=== PATIENT | female | born 1935 | race Caucasian/White ===

== ENCOUNTER 2016-05-14 19:28 | Inpatient (IN) | payer MEDICARE, OTHER ==
[2016-05-11 10:06] LABS: INTERNATIONAL NORMAL RATI 3.9 UNITS (-)
[2016-05-11 10:07] LABS: PROTIME (NOT ORD) 37.7 SEC (12.0-14.5)
[2016-05-13 11:01] LABS: INTERNATIONAL NORMAL RATI 3.1 UNITS (-)
[2016-05-13 11:02] LABS: PROTIME (NOT ORD) 31.7 SEC (12.0-14.5)
--- NOTE | ~2016-05-14 | DS ---
Discharge Summary [facility] [address] [place]. [address] NAME: JOZEF KING : 33 STATUS : DIS IN PAT#: [id number] AGE: 80 ADM/REG DATE : 05/14/16 MR#: [id number] REPORT SERV DATE: 05/22/16 DICTATED BY: GUSTAVO RICHARDS DATE: 05/22/16 REPORT STATUS : Draft TRANSCRIBED BY: MODL DATE: 05/22/16 ADMISSION DATE: 05/14/2016 DISCHARGE DATE: 05/22/2016 CHIEF COMPLAINT ON ADMISSION: Altered mental status and inability to swallow. DISCHARGING DIAGNOSES: 1. Acute encephalopathy. 2. Subacute stroke suspected. 3. Coagulopathy due to Coumadin. 4. Dysphagia due to thrush and aphthous ulcers. 5. Malnutrition. 6. History of recurrent urinary tract infections. 7. Hypertension. 8. Dementia. HISTORY OF PRESENT ILLNESS: Please see full H and P by Dr. Jb Starkey for details regarding initial presentation. HOSPITAL COURSE: 1. Encephalopathy. Suspected this was multifactorial initially, thought that the patient had urinary tract infection, however, the patient's urine came back normal. Unclear etiology other than the patient had multiple issues including severe malnutrition due to poor p.o. intake. Mental status has improved. The patient currently is alert and oriented. 2. Coagulopathy due to Coumadin with oral bleeding. The patient is on Coumadin for recent diagnosis of DVT. Lower extremity Dopplers were negative for DVT. We will continue to hold Coumadin at discharge. 3. Severe malnutrition. This is due to dementia as well as recent issues with swallowing due to thrush and aphthous ulcers. She is currently improving her p.o. intake and should continue to do so at rehab. Family is aware of her p.o. intake issues and is not interested in placing a PEG tube which I agree with. 4. Dysphagia due to thrush and aphthous ulcers. Currently the patient is getting MD Posadas mouthwash in addition to multiple other topical agents. We recommend continuing this at rehab and monitoring. The patient was seen by Speech Therapy who recommended a pureed diet with pureed needs and pudding thick liquids with aspiration precautions and oral care. 5. History of recurrent urinary tract infections. The patient will be resumed on her maintenance Macrobid. Her Ojeda catheter has been removed several days ago and she is urinating. 6. Hypertension. The patient has had very high blood pressure. She was started on low- dose Norvasc. 7. Given her age and comorbidities, we would not recommend tight control. 8. Dementia. The patient will be resumed on her outpatient regimen. Currently able to likely swallow medications safely. She was seen by Speech Therapy. 9. Subacute CVA. Again this may be related to her acute metabolic encephalopathy. We Discharge Summary [place] [address] [place]. [address] NAME: JOZEF KING : 33 STATUS : DIS IN PAT#: [id number] AGE: 80 ADM/REG DATE : 05/14/16 MR#: [id number] REPORT SERV DATE: 05/22/16 DICTATED BY: GUSTAVO RICHARDS DATE: 05/22/16 REPORT STATUS : Draft TRANSCRIBED BY: DELIO DATE: 05/22/16 would again believe it to be multifactorial. Given her symptoms, Neurology felt she likely had a subacute right MCA stroke. They have started on aspirin as well as a statin. Do not recommend further imaging to further clarify and recommend discontinuing estrogen. 10.History of pessary which was removed during the hospitalization. The patient's pessary had not been properly cared for upon admission, we have removed it here and was very full of discharge with green material. Her cultures have not grown anything, we have not replaced this. The patient can follow up with outpatient providers to determine if replacement of pessary is appropriate. DISCHARGE MEDICATIONS: Norvasc 2.5 mg daily; Liquid Tears twice daily; aspirin 325 mg daily; Atorvastatin 40 mg daily; MD Posadas mouthwash 10 mL q.6 hours for the next 7 days, multiple topical treatments; Tylenol p.r.n.; Aricept 10 mg at bedtime; Boniva 150 mg every 30 days; Remeron 15 mg daily; Namenda 5 p.o. b.i.d.; Myrbetriq 25 mg daily; nitrofurantoin 50 mg at bedtime; Prilosec 20 mg daily; Os-Sal; K-Dur 20 mEq daily; Xanax 0.25 every 8 hours p.r.n.; vitamin D; Dulcolax and milk of magnesia p.r.n. Time spent on this discharge is greater than 30 minutes. PERTINENT LABORATORY DATA: At the time of discharge, last hemoglobin 11.3, white blood cell count 9.2, and platelet count of 602. BMP grossly unremarkable with a creatinine of 0.61. DNK/MODL Gustavo Richards MD / [id number] CC: MD Jarret Brewer M.D.
--- NOTE | ~2016-05-14 | EEG ---
Electroencephalogram [id number] [place]. [address] NAME: JOZEF KING : 33 STATUS : DIS IN PAT#: [id number] AGE: 80 ADM/REG DATE : 05/14/16 MR#: [id number] REPORT SERV DATE: 05/26/16 DICTATED BY: JOE MAST DATE: 05/26/16 REPORT STATUS : Draft TRANSCRIBED BY: MODL DATE: 05/26/16 ELECTROENCEPHALOGRAPHY REPORT REQUESTING PHYSICIAN: Dr. Yasmani Craig. INTERPRETING PHYSICIAN: Dr. Joe Mast MD. AGE: 80. REASON FOR EEG: Encephalopathy, altered mental status, rule out seizures. DATE OF EE05/20/2016. 23 surface electrodes, 10-20 international placement was used. The background activity consisted of poorly organized [id number] voltage 6 to 7 cycles per second scattered throughout. Slower frequencies in the low range theta and delta with triphasic configurations were noted intermittently. No significant asymmetry of cerebral activity was present. No paroxysmal epileptiform features were noted during this study. The patient's certified novell administrator showed relatively regular sinus rhythm with substantial amount of artifact seen. No arrhythmias were observed. IMPRESSION: THIS EEG IS COMPATIBLE WITH METABOLIC ENCEPHALOPATHY. DIFFUSE SLOWING OF CEREBRAL ACTIVITY SUGGESTING DIFFUSE CEREBRAL DYSFUNCTION. CLINICAL CORRELATION IS RECOMMENDED. IVETTE/DELIO Joe Mast MD / [id number] CC: MD Jarret Brewer M.D.
--- NOTE | ~2016-05-14 | CN ---
Consultation Report [facility] [address] [place]. [address] NAME: JOZEF KING : 33 STATUS : ADM IN [facility]#: [id number] AGE: 80 ADM/REG DATE : 05/14/16 MR#: [id number] REPORT SERV DATE: 05/19/16 DICTATED BY: KATHLEEN FAIRCHILD DATE: 05/19/16 REPORT STATUS : Draft TRANSCRIBED BY: MODZach DATE: 05/19/16 NEUROLOGY CONSULTATION DATE OF CONSULTATION: 05/19/2016 REASON FOR CONSULTATION: Acute encephalopathy. HOSPITALIST: Gray Barnes M.D. HISTORY OF PRESENT ILLNESS: The patient is an 80-year-old female, who is a resident of [facility]. She recently has had difficulty with persistent urinary tract infections. According to her daughter, she started to have frequent UTIs in March. She has been on several different antibiotics, but has been on several antibiotics which have not seemed to help. In addition to that the patient has had aphthous ulcers in her mouth and has had difficulty swallowing. Because of these problems, the patient was brought into the hospital for further evaluation and treatment. The patient also has a history of dementia, she is on Aricept and Namenda. The patient's daughter feels that she has gradually had diminished level of consciousness and has deviated from her baseline. This has occurred over the last three weeks. Consequently, the daughter was concerned that maybe she had a stroke or seizure type event. The patient is a DNR. PAST MEDICAL HISTORY: Dementia, frequent UTIs, DVT, anxiety, depression, dry eyes, vitamin D deficiency, osteoporosis, stress incontinence, GERD, insomnia, constipation, and aphthous ulcers. PAST SURGICAL HISTORY: Cholecystectomy, total abdominal hysterectomy, and oral surgery. HOME MEDICATIONS: Tylenol p.r.n., Xanax 0.25 mg q.6 hours p.r.n., Artificial Tears p.r.n., aspirin 81 mg daily, Dulcolax 10 mg suppository p.r.n. constipation, Os-Sal with D 500 mg p.o. b.i.d., Aricept 10 mg at bedtime, vitamin D3 50,000 units every month, Estrace vaginal cream 1 g vaginally three times a week, Boniva 150 mg every month, Namenda 5 mg b.i.d., milk of magnesia 30 mL p.o. p.r.n. constipation, Myrbetriq 25 mg ER every day, Remeron 15 mg at bedtime, Macrodantin 50 mg at bedtime, Prilosec 20 mg daily, K-Dur 20 mEq daily, Isabella-Colace one tablet twice a day, Bactrim DS one tablet b.i.d. x14 days which was started on 05/06/2016 of this month, Kenalog cream topically four times a day applied to the lips, Lidex 0.5% ointment four times a day, intraoral tissue, Coumadin 2 mg daily (currently on hold). ALLERGIES: NONE. SOCIAL HISTORY: The patient lives at [facility]. She is a . She has four girls. She is retired. 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 She does not smoke, drink alcohol, or use illicits. Consultation Report [address] [address] NAME: JOZEF KING : 33 STATUS : ADM IN [facility]#: [id number] AGE: 80 ADM/REG DATE : 05/14/16 MR#: [id number] REPORT SERV DATE: 05/19/16 DICTATED BY: KATHLEEN FAIRCHILD DATE: 05/19/16 REPORT STATUS : Draft TRANSCRIBED BY: DELIO DATE: 05/19/16 FAMILY HISTORY: The patient's mother in her 60s from a stroke. The patient had an absentee father and consequently has no medical history. She has one older sister, who is in poor health. REVIEW OF SYSTEMS: Unable to obtain from the patient. She is encephalopathic. PHYSICAL EXAMINATION: VITAL SIGNS: The patient is an 80-year-old female, who stands 5 feet 3 inches tall, and weighs 134 pounds. She is afebrile. Heart rate 76, respiratory rate 18, O2 saturations on room air 96%, blood pressure is 195/90. NEURO: The patient is awake. She is alert at times, sometimes she will be somewhat drowsy, but is easily awoken with verbal or painful stimuli. Pupils are 3 mm, PERRLA. The patient has partial gaze palsy. Visually she is oriented to her right side, but not her left (visual extinction). There is no facial droop. Tongue is somewhat midline. She does have aphthous ulcers on her soft palate and hard palate. No reported sensory deficits on the face. She can move all extremities x4. She is unable to raise her left arm. Hand is somewhat closed, she is unable to completely open her hand, and has limited range of motion (left hand). She has good range of motion with the right hand. Strength on the right is 4/5, on the left 2/5. The patient reports diminished sensation on the left when compared to the right. Upper DTRs on the left are 3+, on the right are 2+. Lower extremities, strength on the right is a 3+, and on the left is 1+. Unable to obtain an accurate patient report on sensation in the lower extremities. The patient's left foot is slightly inverted. Upgoing toes. Patellar DTRs are 2+ bilaterally. CHEST: Rhonchi bilaterally. CARDIAC: Regular rate and rhythm. Distant heart sounds. LABORATORY DATA: CBC is relatively normal. Platelets are 490. BMP normal except potassium is 3.4, INR today is 3.1, B12 767, TSH 2.0. Urinalysis is negative for UTI, however, culture did show yeast. CT of the brain, no new infarction, however, it shows a subacute infarction in the right MCA territory. NIH stroke scale is a 15. ASSESSMENT/PLAN: 1. Subacute middle cerebral artery territory stroke. At present the patient is n.p.o., but she will be started on aspirin 300 mg rectally, and will be started on a statin when she is taking p.o. The patient is unable to tolerate MRI. She did have a CT. No further imaging will be done. The patient is a DNR. 2. Acute encephalopathy, most likely multifactorial. The patient recently had a urinary tract infection. She also has had a subacute stroke. 3. Recent urinary tract infection. 4. Dementia. 5. Aphthous ulcers. 6. Dysphagia, most likely caused from ulcerations and possibly secondary to stroke. Speech Therapy will be reconsulted. 7. DNR. Consultation Report [place] [address] [address] NAME: JOZEF KING : 33 STATUS : ADM IN [facility]#: [id number] AGE: 80 ADM/REG DATE : 05/14/16 MR#: [id number] REPORT SERV DATE: 05/19/16 DICTATED BY: KATHLEEN FAIRCHILD DATE: 05/19/16 REPORT STATUS : Draft TRANSCRIBED BY: DELIO DATE: 05/19/16 Thank you again for including us in consultation. We will continue to follow with you. JULIET/DELIO Kathleen Fairchild ACNP-BC / [id number] CC: MD Jarret Brewer M.D. Adrien K. Strickland, M.D.
--- NOTE | ~2016-05-14 | HP ---
History And Physical [id number] [place]. [address] NAME: JOZEF GOMEZ : 33 STATUS : ADM IN [facility]#: [id number] AGE: 80 ADM/REG DATE : 05/14/16 MR#: [id number] REPORT SERV DATE: 05/14/16 DICTATED BY: JB BLACK DATE: 05/14/16 REPORT STATUS : Draft TRANSCRIBED BY: MODL DATE: 05/14/16 DATE OF ADMISSION: 05/14/2016 CHIEF COMPLAINT: Altered mental status and inability to swallow even liquids. HISTORY OF PRESENT ILLNESS: This is an 80-year-old female, a resident at [facility] with a history of recent ongoing urinary tract infections and oral aphthous ulcers, was brought to the emergency room at [facility] because she was unable to swallow even liquids today. History is obtained from the patient's daughter, who is at bedside, reviewing data available from the facility which accompanied the patient and reviewing data available on the [facility] system here. According to available data, Mrs. Gomez started having a urinary tract infection about three weeks ago, around or so march. She was treated with a round of antibiotics and then found to have another urinary tract infection. Looking at Gram stains here, the first one was nitrite negative and subsequently, they had become nitrite positive. She had been treated with oral Bactrim in the facility as well. She has a history of DVT three weeks ago and has since been on warfarin as well. Apparently, the prothrombin time was up, INR was 3.1 yesterday and Coumadin was on hold. She was sent to the emergency room because she was unable to swallow anything and had a problem with nutrition also. In the emergency room, initial evaluation revealed severe oral aphthous ulcers and possibly thrush contributing to her dysphagia. She also had a urinary tract infection as well and Hospitalist Service is asked to admit her for further evaluation and treatment. At the time of my evaluation, Mrs. Gomez had some altered mental status going, although she was able to answer some questions, but she would not respond to many others. According to the daughter, she had not complained of any chest pain or palpitations. She did not have orthopnea today. She has not had any recent cough, fever, chills, hemoptysis, night sweats, or weight loss. She has not had any nausea, vomiting, or diarrhea. No history of recent hematemesis, hematochezia, or hematuria. No other history of recent travel or exposures other than those mentioned above. PAST MEDICAL HISTORY: Significant for history of recent deep venous thrombosis in her lower extremities, started on warfarin therapy. She also has history of ongoing urinary tract infection. SOCIAL HISTORY: She does not smoke, drink, or use recreational drugs. FAMILY HISTORY: Noncontributory. MEDICATIONS AT HOME: Reviewed by me in the chart today and reordered by me. REVIEW OF SYSTEMS: As in history of present illness. All other systems were reviewed in detail and are quite unremarkable. History And Physical [address] [address] NAME: JOZEF GOMEZ : 33 STATUS : ADM IN [facility]#: [id number] AGE: 80 ADM/REG DATE : 05/14/16 MR#: [id number] REPORT SERV DATE: 05/14/16 DICTATED BY: JB BLACK DATE: 05/14/16 REPORT STATUS : Draft TRANSCRIBED BY: DELIO DATE: 05/14/16 PHYSICAL EXAMINATION: GENERAL: This is a pleasant 80-year-old, who has altered mental status and is a very poor historian. HEENT: Her head appears to be atraumatic, normocephalic. Her pupils are equal, reacting to light and accommodating. External ocular muscles are intact. Membranes are moist and pink. Sclerae are nonicteric. Her oropharynx and oral cavity was examined with flash light by me. There are several aphthous ulcers, especially in the back of her hard palate and soft palate that seems to be thrush as well. NECK: Supple with no jugular venous distention, lymphadenopathy, or thyromegaly. LUNGS: Clear to auscultation with no wheezes, rubs, or crackles. HEART: Sounds were regular with no murmurs, rubs, or gallops. ABDOMEN: Soft, nontender. Bowel sounds are present. EXTREMITIES: Showed no cyanosis, clubbing, or edema. NEUROLOGIC: Grossly intact. No focal sensory or motor deficits. Higher functions appeared intact. VITAL SIGNS: Today showed temperature of 98 degrees Fahrenheit, pulse 91, respirations 18 a minute, blood pressure was 147/65, oxygen saturations were 99%, breathing 2 L of oxygen via nasal cannula. LABORATORY DATA: Reviewed on the [facility] system showed a normal CMP with a blood glucose of 119. Her lipase was 96 today. Alkaline phosphatase was 361. ALT and AST were also elevated. This was 104 in March 2013. Her troponin was 0.02 and CBC showed a white blood cell count of 11,600. Normal hemoglobin, hematocrit, and platelet count. Urinalysis today showed trace ketone, trace leukocyte esterase, nitrite was negative today and there were 5 wbc's. Films of the CT scan of her brain did not reveal any acute pathology at this time. Official radiology report was reviewed. A 12-lead EKG done in the emergency room was reviewed and interpreted by me. There is normal sinus rhythm at a rate of [address] elevations. IMPRESSION: 1. Altered mental status. 2. Dysphagia to even liquids. 3. Oral aphthous ulcers. 4. Urinary tract infection. 5. History of deep vein thrombosis, on warfarin therapy. 6. History of cerebrovascular accident. 7. The patient is DNR. PLAN: We will admit Mrs. Gomez to the Hospitalist Service with defensive monitoring. We will start her on nystatin swish and swallow for her thrush and also Orajel cream for her aphthous ulcers. We will get speech therapy to evaluate her as well. After cultures are drawn, we will start her on ceftriaxone intravenously for UTI. Follow Gram stains and culture results and if not needed, we will stop it. We will get a stat prothrombin time with INR and then, go ahead and dose warfarin. Meanwhile, we will give her some IV fluids for maintenance and nutrition. Follow chemistry and electrolytes in the morning. We will also get speech therapy to evaluate her, but I think her oral ulcers and thrush could be History And Physical [address] [address] NAME: JOZEF GOMEZ : 31 STATUS : ADM IN [facility]#: [id number] AGE: 80 ADM/REG DATE : 05/14/16 MR#: [id number] REPORT SERV DATE: 05/14/16 DICTATED BY: JB BLACK DATE: 05/14/16 REPORT STATUS : Draft TRANSCRIBED BY: MODL DATE: 05/14/16 contributing to the problem as well. I have discussed the above plans with the patient and her daughter. Questions were answered and they are agreeable to the above recommendations. Hospitalist Service will be following her during her stay here. /DELIO Jb Black M.D. / [id number] CC: Ariela Newsome M.D.
[2016-05-14 18:30] LABS: ASCORBIC ACID (UR NOT ORDER) NEG (NEG); BILIRUBIN, URINE NEGATIVE (NEG); ER URINALYSIS TAT 0 Hrs 16 Mins; KETONE, URINE TRACE MG/DL (NEG); LEUKOCYTE ESTERASE(NOT OR TRACE (NEG); NITRITE (URINE) NEG (NEG); WBC (NOT ORDERED) (RFLEX) 5 (0-5)
[2016-05-14 18:31] LABS: BASOPHILS 0.5 %; BASOPHILS ABSOLUTE 0.06 10/3/uL (0.0-0.16); EOSINOPHILS 2.4 %; EOSINOPHILS ABSOLUTE 0.28 10/3/uL (0.0-0.53); ER CBC TAT 0 Hrs 08 Mins; HEMOGLOBIN 12.6 g/dL (12.0-16.0); IMMATURE GRANULOCYTES 3.7 %; IMMATURE GRANULOCYTES ABSOLUTE 0.43 10/3/uL (0.0-0.11); LYMPHOCYTES 8.4 %; LYMPHOCYTES ABSOLUTE 0.98 10/3/uL (0.67-4.30); MEAN CORPUS HGB CONC 32.5 g/dL (32.0-36.0); MEAN CORPUSCULAR HEMOGLOB 30.7 pg (26.0-34.0); MEAN CORPUSCULAR VOLUME 94.6 fL (80-100); MEAN PLATELET VOLUME 9.1 fL (9.2-13.0); MONOCYTES 8.9 %; MONOCYTES ABSOLUTE 1.04 10/3/uL (0.21-1.20); NEUTROPHILS 76.1 %; NEUTROPHILS ABSOLUTE 8.84 10/3/uL (2.02-8.40); PLATELET COUNT 402 10/3/uL (150-400); WHITE BLOOD CELLS 11.6 10/3/uL (4.5-10.5)
[2016-05-14 18:40] LABS: HEMATOCRIT 38.8 % (36.0-48.0); MANUAL DIFF NO %
[2016-05-14 18:47] LABS: A/G RATIO 0.5 (0.7-1.9); ALBUMIN 2.2 G/DL (3.5-5.0); ALKALINE PHOSPHATASE 361 U/L (45-117); BUN (BLOOD UREA NITROGEN) 19 MG/DL (6-23); CALCIUM, SERUM 8.1 MG/DL (8.5-10.4); CHLORIDE, SERUM 110 MMOL/L (96-112); CO2 (CARBON DIOXIDE) 25 MMOL/L (24-34); CREATININE 0.75 MG/DL (0.55-1.02); GFR AFRICAN AMERICAN 86 ML/MIN (>=60); GFR NON AFRICAN AMERICAN 74 ML/MIN (>=60); GLOBULIN 4.3 G/DL (2.5-4.1); GLUCOSE, SERUM 119 MG/DL (60-99); POTASSIUM, SERUM 4.2 MMOL/L (3.5-5.3); SGOT(AST) 179 U/L (5-40); SGPT(ALT) 324 U/L (5-65); SODIUM, SERUM 144 MMOL/L (135-148); TOTAL BILIRUBIN 0.5 MG/DL (0-1.2); TOTAL PROTEIN 6.5 G/DL (6.0-8.5)
[2016-05-14] MEDS ORDERED: TEARS PURE OPH ×2 (21:08→21:28)
[2016-05-14] MEDS ORDERED: HALF81 PO (21:08)
[2016-05-14] MEDS ORDERED: ARICEPT10 PO (21:09)
[2016-05-14] MEDS ORDERED: BONIVA150 MG PO (21:10)
[2016-05-14] MEDS ORDERED: ESTRACE VAGIN42.5 GM V (21:10)
[2016-05-14] MEDS ORDERED: KENALOG 0.1% TOP (21:12)
[2016-05-14] MEDS ORDERED: FLUOCINONIDE 0.05% PO (21:21)
[2016-05-14] MEDS ORDERED: MYRBETRIQ25 MG PO (21:22)
[2016-05-14] MEDS ORDERED: REM15 PO (21:22)
[2016-05-14] MEDS ORDERED: NAMENDA5 PO (21:22)
[2016-05-14] MEDS ORDERED: PRILOSEC OTC20 MG PO (21:23)
[2016-05-14] MEDS ORDERED: MACRO50B PO (21:23)
[2016-05-14] MEDS ORDERED: KDUR20 PO (21:24)
[2016-05-14] MEDS ORDERED: OS500+D PO (21:24)
[2016-05-14] MEDS ORDERED: BACDS PO (21:25)
[2016-05-14] MEDS ORDERED: PERI-COLACE1 TAB PO (21:25)
[2016-05-14] MEDS ORDERED: VITD PO (21:26)
[2016-05-14] MEDS ORDERED: T PO (21:27)
[2016-05-14] MEDS ORDERED: BISR PR (21:28)
[2016-05-14] MEDS ORDERED: X25 PO (21:28)
[2016-05-14] MEDS ORDERED: MOMUD PO (21:29)
[2016-05-14] MEDS ORDERED: C2 PO (21:31)
[2016-05-14 23:11] LABS: INTERNATIONAL NORMAL RATI 3.3 UNITS (-); PROTIME (NOT ORD) 33.1 SEC (12.0-14.5)
[2016-05-14 23:19] LABS: BUN (BLOOD UREA NITROGEN) 18 MG/DL (6-23); CALCIUM, SERUM 8.3 MG/DL (8.5-10.4); CHLORIDE, SERUM 110 MMOL/L (96-112); CO2 (CARBON DIOXIDE) 23 MMOL/L (24-34); CREATININE 0.67 MG/DL (0.55-1.02); GFR AFRICAN AMERICAN 95 ML/MIN (>=60); GFR NON AFRICAN AMERICAN 82 ML/MIN (>=60); GLUCOSE, SERUM 115 MG/DL (60-99); PHOSPHORUS, SERUM 2.4 MG/DL (2.5-4.5); POTASSIUM, SERUM 3.9 MMOL/L (3.5-5.3); SODIUM, SERUM 143 MMOL/L (135-148)
[2016-05-15 14:21] LABS: HEMOGLOBIN 11.3 g/dL (12.0-16.0); MEAN CORPUS HGB CONC 32.8 g/dL (32.0-36.0); MEAN CORPUSCULAR HEMOGLOB 30.6 pg (26.0-34.0); MEAN CORPUSCULAR VOLUME 93.2 fL (80-100); MEAN PLATELET VOLUME 8.7 fL (9.2-13.0); PLATELET COUNT 397 10/3/uL (150-400); RBC DISTRIBUTION WIDTH 14.1 % (12.0-16.0); RED CELL COUNT 3.69 10/6/uL (4.0-5.6); WHITE BLOOD CELLS 10.4 10/3/uL (4.5-10.5)
[2016-05-15 14:23] LABS: HEMATOCRIT 34.4 % (36.0-48.0); MANUAL DIFF YES %
[2016-05-15 14:29] LABS: PARTIAL THROMBO TIME 54.4 SEC (22.5-37.2)
[2016-05-15 14:33] LABS: PROTIME (NOT ORD) 38.7 SEC (12.0-14.5)
[2016-05-15 14:41] LABS: A/G RATIO 0.5 (0.7-1.9); BUN (BLOOD UREA NITROGEN) 12 MG/DL (6-23); CHLORIDE, SERUM 108 MMOL/L (96-112); CO2 (CARBON DIOXIDE) 25 MMOL/L (24-34); CREATININE 0.64 MG/DL (0.55-1.02); DIRECT BILIRUBIN 0.2 MG/DL (0.0-0.4); GFR AFRICAN AMERICAN 96 ML/MIN (>=60); GFR NON AFRICAN AMERICAN 83 ML/MIN (>=60); GLOBULIN 4.1 G/DL (2.5-4.1); GLUCOSE, SERUM 107 MG/DL (60-99); INDIRECT BILIRUBIN(NOT ORDER) 0.5 MG/DL (0.1-0.9); POTASSIUM, SERUM 3.7 MMOL/L (3.5-5.3); SGOT(AST) 134 U/L (5-40); SGPT(ALT) 242 U/L (5-65); SODIUM, SERUM 141 MMOL/L (135-148); TOTAL BILIRUBIN 0.7 MG/DL (0-1.2); TOTAL PROTEIN 6.1 G/DL (6.0-8.5)
[2016-05-15 14:42] LABS: ALKALINE PHOSPHATASE 340 U/L (45-117)
[2016-05-15 15:29] LABS: VACUOLATED NEUTROPHILES OCC
[2016-05-15 15:30] LABS: ATYPICAL LYMPH OCC (0-2%) (0-5%)
[2016-05-16 06:16] LABS: PARTIAL THROMBO TIME 72.3 SEC (22.5-37.2)
[2016-05-16 06:18] LABS: BASOPHILS 0.5 %; BASOPHILS ABSOLUTE 0.05 10/3/uL (0.0-0.16); EOSINOPHILS 3.8 %; EOSINOPHILS ABSOLUTE 0.38 10/3/uL (0.0-0.53); HEMATOCRIT 34.4 % (36.0-48.0); HEMOGLOBIN 11.1 g/dL (12.0-16.0); IMMATURE GRANULOCYTES 3.9 %; IMMATURE GRANULOCYTES ABSOLUTE 0.39 10/3/uL (0.0-0.11); LYMPHOCYTES 15.3 %; LYMPHOCYTES ABSOLUTE 1.54 10/3/uL (0.67-4.30); MEAN CORPUS HGB CONC 32.3 g/dL (32.0-36.0); MEAN CORPUSCULAR HEMOGLOB 30.5 pg (26.0-34.0); MEAN CORPUSCULAR VOLUME 94.5 fL (80-100); MEAN PLATELET VOLUME 8.7 fL (9.2-13.0); MONOCYTES ABSOLUTE 1.11 10/3/uL (0.21-1.20); NEUTROPHILS 65.5 %; NEUTROPHILS ABSOLUTE 6.61 10/3/uL (2.02-8.40); PLATELET COUNT 409 10/3/uL (150-400); RED CELL COUNT 3.64 10/6/uL (4.0-5.6); WHITE BLOOD CELLS 10.1 10/3/uL (4.5-10.5)
[2016-05-16 06:20] LABS: MANUAL DIFF NO %
[2016-05-16 06:26] LABS: PROTIME (NOT ORD) 45.8 SEC (12.0-14.5)
[2016-05-16 06:31] LABS: A/G RATIO 0.5 (0.7-1.9); ALBUMIN 1.9 G/DL (3.5-5.0); BUN (BLOOD UREA NITROGEN) 9 MG/DL (6-23); CALCIUM, SERUM 8.1 MG/DL (8.5-10.4); CHLORIDE, SERUM 107 MMOL/L (96-112); CO2 (CARBON DIOXIDE) 24 MMOL/L (24-34); CREATININE 0.61 MG/DL (0.55-1.02); GFR AFRICAN AMERICAN 98 ML/MIN (>=60); GFR NON AFRICAN AMERICAN 84 ML/MIN (>=60); GLOBULIN 4.2 G/DL (2.5-4.1); GLUCOSE, SERUM 114 MG/DL (60-99); POTASSIUM, SERUM 3.5 MMOL/L (3.5-5.3); SGOT(AST) 198 U/L (5-40); SGPT(ALT) 262 U/L (5-65); SODIUM, SERUM 140 MMOL/L (135-148); TOTAL BILIRUBIN 1.1 MG/DL (0-1.2); TOTAL PROTEIN 6.1 G/DL (6.0-8.5)
[2016-05-16 06:32] LABS: ALKALINE PHOSPHATASE 365 U/L (45-117); DIRECT BILIRUBIN 0.5 MG/DL (0.0-0.4); INDIRECT BILIRUBIN(NOT ORDER) 0.6 MG/DL (0.1-0.9)
[2016-05-16 17:36] LABS: ASCORBIC ACID (UR NOT ORDER) NEG (NEG); BILIRUBIN, URINE NEGATIVE (NEG); KETONE, URINE NEGATIVE (NEG); LEUKOCYTE ESTERASE(NOT OR NEG (NEG); WBC (NOT ORDERED) (RFLEX) 1 (0-5)
[2016-05-16 18:42] LABS: INFLUENZA A SCREEN NEGATIVE (NEGATIVE); INFLUENZA B SCREEN NEGATIVE (NEGATIVE)
[2016-05-16 20:03] LABS: PARTIAL THROMBO TIME 47.2 SEC (22.5-37.2)
[2016-05-16 20:04] LABS: INTERNATIONAL NORMAL RATI 2.4 UNITS (-)
[2016-05-16 20:07] LABS: PROTIME (NOT ORD) 26.2 SEC (12.0-14.5)
[2016-05-17 05:04] LABS: BASOPHILS 0.4 %; BASOPHILS ABSOLUTE 0.04 10/3/uL (0.0-0.16); EOSINOPHILS 3.5 %; EOSINOPHILS ABSOLUTE 0.32 10/3/uL (0.0-0.53); HEMATOCRIT 32.5 % (36.0-48.0); HEMOGLOBIN 10.6 g/dL (12.0-16.0); IMMATURE GRANULOCYTES ABSOLUTE 0.18 10/3/uL (0.0-0.11); LYMPHOCYTES ABSOLUTE 1.47 10/3/uL (0.67-4.30); MEAN CORPUS HGB CONC 32.6 g/dL (32.0-36.0); MEAN CORPUSCULAR HEMOGLOB 30.5 pg (26.0-34.0); MEAN CORPUSCULAR VOLUME 93.4 fL (80-100); MEAN PLATELET VOLUME 8.7 fL (9.2-13.0); MONOCYTES 10.5 %; MONOCYTES ABSOLUTE 0.96 10/3/uL (0.21-1.20); NEUTROPHILS 67.6 %; PLATELET COUNT 441 10/3/uL (150-400); RBC DISTRIBUTION WIDTH 13.6 % (12.0-16.0); RED CELL COUNT 3.48 10/6/uL (4.0-5.6); WHITE BLOOD CELLS 9.2 10/3/uL (4.5-10.5)
[2016-05-17 05:10] LABS: MANUAL DIFF NO %
[2016-05-17 05:18] LABS: INTERNATIONAL NORMAL RATI 2.8 UNITS (-); PARTIAL THROMBO TIME 55.1 SEC (22.5-37.2)
[2016-05-17 05:21] LABS: A/G RATIO 0.5 (0.7-1.9); ALBUMIN 2.2 G/DL (3.5-5.0); ALKALINE PHOSPHATASE 340 U/L (45-117); BUN (BLOOD UREA NITROGEN) 6 MG/DL (6-23); CALCIUM, SERUM 8.4 MG/DL (8.5-10.4); CHLORIDE, SERUM 103 MMOL/L (96-112); CO2 (CARBON DIOXIDE) 27 MMOL/L (24-34); CREATININE 0.58 MG/DL (0.55-1.02); DIRECT BILIRUBIN 0.3 MG/DL (0.0-0.4); GFR AFRICAN AMERICAN 99 ML/MIN (>=60); GFR NON AFRICAN AMERICAN 86 ML/MIN (>=60); GLOBULIN 4.1 G/DL (2.5-4.1); GLUCOSE, SERUM 118 MG/DL (60-99); INDIRECT BILIRUBIN(NOT ORDER) 0.6 MG/DL (0.1-0.9); POTASSIUM, SERUM 3.2 MMOL/L (3.5-5.3); SGOT(AST) 120 U/L (5-40); SGPT(ALT) 208 U/L (5-65); SODIUM, SERUM 140 MMOL/L (135-148); TOTAL BILIRUBIN 0.9 MG/DL (0-1.2); TOTAL PROTEIN 6.3 G/DL (6.0-8.5)
[2016-05-17 08:52] LABS: HEPATITIS B SURFACE ANTIGEN NON-REACTIVE (NON-REACT)
[2016-05-17 08:57] LABS: HEPATITIS B CORE AB IGM NON-REACTIVE (NON-REAC); HEPATITIS C ANTIBODY NON-REACTIVE (NON-REACT)
[2016-05-17 09:01] LABS: HEP A ANTIBODY IGM NON-REACTIVE (NON-REACT)
[2016-05-17 18:03] LABS: ALCOHOL < 10 MG/DL (0); FOLATE 8.7 NG/ML (>5.2)
[2016-05-18 04:00] LABS: BASOPHILS 0.4 %; BASOPHILS ABSOLUTE 0.04 10/3/uL (0.0-0.16); EOSINOPHILS 2.9 %; EOSINOPHILS ABSOLUTE 0.27 10/3/uL (0.0-0.53); HEMATOCRIT 34.4 % (36.0-48.0); HEMOGLOBIN 11.3 g/dL (12.0-16.0); IMMATURE GRANULOCYTES 2.4 %; IMMATURE GRANULOCYTES ABSOLUTE 0.22 10/3/uL (0.0-0.11); LYMPHOCYTES 15.5 %; LYMPHOCYTES ABSOLUTE 1.45 10/3/uL (0.67-4.30); MEAN CORPUS HGB CONC 32.8 g/dL (32.0-36.0); MEAN CORPUSCULAR HEMOGLOB 30.5 pg (26.0-34.0); MEAN PLATELET VOLUME 8.4 fL (9.2-13.0); MONOCYTES 8.7 %; MONOCYTES ABSOLUTE 0.81 10/3/uL (0.21-1.20); NEUTROPHILS 70.1 %; NEUTROPHILS ABSOLUTE 6.55 10/3/uL (2.02-8.40); PLATELET COUNT 490 10/3/uL (150-400); RBC DISTRIBUTION WIDTH 13.5 % (12.0-16.0); WHITE BLOOD CELLS 9.3 10/3/uL (4.5-10.5)
[2016-05-18 04:01] LABS: MANUAL DIFF NO %
[2016-05-18 04:07] LABS: INTERNATIONAL NORMAL RATI 2.4 UNITS (-); PARTIAL THROMBO TIME 39.8 SEC (22.5-37.2); PROTIME (NOT ORD) 25.9 SEC (12.0-14.5)
[2016-05-18 04:14] LABS: A/G RATIO 0.5 (0.7-1.9); ALBUMIN 2.3 G/DL (3.5-5.0); BUN (BLOOD UREA NITROGEN) 5 MG/DL (6-23); CALCIUM, SERUM 8.6 MG/DL (8.5-10.4); CHLORIDE, SERUM 102 MMOL/L (96-112); CO2 (CARBON DIOXIDE) 27 MMOL/L (24-34); CREATININE 0.49 MG/DL (0.55-1.02); DIRECT BILIRUBIN 0.4 MG/DL (0.0-0.4); GFR AFRICAN AMERICAN 105 ML/MIN (>=60); GFR NON AFRICAN AMERICAN 91 ML/MIN (>=60); GLOBULIN 4.5 G/DL (2.5-4.1); GLUCOSE, SERUM 129 MG/DL (60-99); INDIRECT BILIRUBIN(NOT ORDER) 0.4 MG/DL (0.1-0.9); POTASSIUM, SERUM 3.1 MMOL/L (3.5-5.3); SGOT(AST) 85 U/L (5-40); SGPT(ALT) 169 U/L (5-65); SODIUM, SERUM 141 MMOL/L (135-148); TOTAL BILIRUBIN 0.8 MG/DL (0-1.2); TOTAL PROTEIN 6.8 G/DL (6.0-8.5)
[2016-05-18 04:19] LABS: ALKALINE PHOSPHATASE 323 U/L (45-117)
[2016-05-19 04:25] LABS: INTERNATIONAL NORMAL RATI 3.1 UNITS (-)
[2016-05-19 04:26] LABS: PROTIME (NOT ORD) 31.4 SEC (12.0-14.5)
[2016-05-19 04:32] LABS: BUN (BLOOD UREA NITROGEN) 5 MG/DL (6-23); CALCIUM, SERUM 8.6 MG/DL (8.5-10.4); CHLORIDE, SERUM 104 MMOL/L (96-112); CO2 (CARBON DIOXIDE) 28 MMOL/L (24-34); CREATININE 0.55 MG/DL (0.55-1.02); GFR AFRICAN AMERICAN 101 ML/MIN (>=60); GFR NON AFRICAN AMERICAN 87 ML/MIN (>=60); GLUCOSE, SERUM 138 MG/DL (60-99); POTASSIUM, SERUM 3.4 MMOL/L (3.5-5.3); SODIUM, SERUM 141 MMOL/L (135-148)
[2016-05-20 08:08] LABS: BASOPHILS 0.4 %; BASOPHILS ABSOLUTE 0.04 10/3/uL (0.0-0.16); EOSINOPHILS 3.3 %; HEMATOCRIT 35.5 % (36.0-48.0); HEMOGLOBIN 11.3 g/dL (12.0-16.0); IMMATURE GRANULOCYTES ABSOLUTE 0.09 10/3/uL (0.0-0.11); LYMPHOCYTES ABSOLUTE 1.75 10/3/uL (0.67-4.30); MANUAL DIFF NO %; MEAN CORPUS HGB CONC 31.8 g/dL (32.0-36.0); MEAN CORPUSCULAR HEMOGLOB 29.8 pg (26.0-34.0); MEAN CORPUSCULAR VOLUME 93.7 fL (80-100); MEAN PLATELET VOLUME 8.6 fL (9.2-13.0); MONOCYTES ABSOLUTE 1.01 10/3/uL (0.21-1.20); NEUTROPHILS 65.3 %; NEUTROPHILS ABSOLUTE 6.02 10/3/uL (2.02-8.40); PLATELET COUNT 602 10/3/uL (150-400); RED CELL COUNT 3.79 10/6/uL (4.0-5.6); WHITE BLOOD CELLS 9.2 10/3/uL (4.5-10.5)
[2016-05-20 08:31] LABS: CHOL/HDL RATIO(NOT ORDER) 7.9 (0-5)
[2016-05-21 05:02] LABS: INTERNATIONAL NORMAL RATI 1.9 UNITS (-)
[2016-05-21 05:04] LABS: PROTIME (NOT ORD) 21.4 SEC (12.0-14.5)
[2016-05-21 05:13] LABS: BUN (BLOOD UREA NITROGEN) 4 MG/DL (6-23); CALCIUM, SERUM 8.9 MG/DL (8.5-10.4); CHLORIDE, SERUM 106 MMOL/L (96-112); CO2 (CARBON DIOXIDE) 24 MMOL/L (24-34); CREATININE 0.61 MG/DL (0.55-1.02); GFR AFRICAN AMERICAN 98 ML/MIN (>=60); GFR NON AFRICAN AMERICAN 84 ML/MIN (>=60); GLUCOSE, SERUM 119 MG/DL (60-99); POTASSIUM, SERUM 3.6 MMOL/L (3.5-5.3); SODIUM, SERUM 142 MMOL/L (135-148)
== END 2016-05-22 12:10 | DRG 157 ==
LOC: ER 19:28 → 4EA 20:54
PROVIDERS: Emergency Medicine; Internal Medicine; Internal Medicine Pulmonary Disease; Nurse Practitioner; Nurse Practitioner Family; Physical Medicine & Rehabilitation
PROC: 30233K1 Transfusion of Nonautologous Frozen Plasma into Peripheral Vein, Percutaneous Approach (ICD-10-PCS; principal; 2016-05-16)
DX: K12.0 Recurrent oral aphthae (principal); I63.9 Cerebral infarction, unspecified; E43 Unspecified severe protein-calorie malnutrition; G93.41 Metabolic encephalopathy; R13.11 Dysphagia, oral phase; N39.0 Urinary tract infection, site not specified; D68.8 Other specified coagulation defects; K12.1 Other forms of stomatitis; Z86.718 Personal history of other venous thrombosis and embolism; Z79.01 Long term (current) use of anticoagulants; Z66 Do not resuscitate; Z68.23 Body mass index [BMI] 23.0-23.9, adult
CPT/HCPCS: 36415; 70450; 71010; 80048; 80053; 80061; 80074; 81001; 82140; 82248; 82306; 82533; 82607; 82746; 83036; 83690; 83735; 84100; 84132; 84443; 85025; 85610; 85730; 86900; 86901; 87040; 87070; 87205; 87449; 87804; 92610-GN; 93005; 93970; 95816; 96374; 97166-GO; 99285; A9270-GY; G0480; G8987-CM-GO; G8988-CL-GO; G8996-CK-GN; G8996-CN-GN; G8997-CK-GN; G8997-CN-GN; G8998-CK-GN; G8998-CN-GN; J0360; J1450; J1885; J2405; J2543; J3486; P9059